=== PATIENT | male | born 1990 | race Caucasian/White ===

== ENCOUNTER 2020-06-18 00:10 | Emergency (ER) | payer OTHER ==
[~2020-06-18 00:10] MED LIST: AUGMENTIN 875-1 EACH PO; CIPRODEX OTIC7.5 ML EARRT; NORCO 5-325 TA1 EACH PO; TESSALON PERLE100 M1 PO; TRAMADOL HCL50 MG PO; VIBRAMYCIN100 MG PO
[2020-06-18] MEDS ORDERED: DICLOFENAC SODI75 MG PO (00:59)
[2020-06-18] MEDS ORDERED: DOXYCYCLINE MO100 MG PO (00:59)
== END 2020-06-18 01:14 | disposition home or self-care (01) ==
LOC: FER 00:10
DX: L03.114 Cellulitis of left upper limb (principal); F17.210 Nicotine dependence, cigarettes, uncomplicated

== ENCOUNTER 2020-12-25 04:06 | Emergency (ER) | payer OTHER ==
[~2020-12-25 04:06] MED LIST changes: +DICLOFENAC SODI75 MG PO; +DOXYCYCLINE MO100 MG PO
== END 2020-12-25 05:20 | disposition home or self-care (01) ==
LOC: FER 04:06
DX: U07.1 COVID-19 (principal); T23.051A Burn of unspecified degree of right palm, initial encounter; J45.909 Unspecified asthma, uncomplicated; F17.200 Nicotine dependence, unspecified, uncomplicated; Z23 Encounter for immunization
CPT/HCPCS: 90715; 99283; U0002